=== PATIENT | female | born 1960 | race Caucasian/White ===

== ENCOUNTER → 2016-12-20 | Outpatient (CLI) | payer OTHER | LOC: US 12-19 14:15 | DX: N28.9 Disorder of kidney and ureter, unspecified (principal) ==

== ENCOUNTER → 2017-02-13 | Outpatient (CLI) | payer OTHER ==
[2017-02-13 13:07] LABS: HEMOGLOBIN 11.2 gm/dl (12.3-15.3); RED BLOOD COUNT 3.47 M/UL (4.00-5.10); WHITE BLOOD COUNT 4.3 K/UL (4.5-11.0)
== END ==
LOC: LAB 12:45
PROVIDERS: Internal Medicine
DX: Z51.81 Encounter for therapeutic drug level monitoring (principal); G56.03 Carpal tunnel syndrome, bilateral upper limbs; M21.611 Bunion of right foot; M17.0 Bilateral primary osteoarthritis of knee; M05.79 Rheumatoid arthritis with rheumatoid factor of multiple sites without organ or systems involvement; Z79.1 Long term (current) use of non-steroidal anti-inflammatories (NSAID); M51.36 Other intervertebral disc degeneration, lumbar region; Z79.899 Other long term (current) drug therapy; Z15.89 Genetic susceptibility to other disease; Z71.9 Counseling, unspecified
CPT/HCPCS: 36415; 80076; 82565; 85025; 86140

== ENCOUNTER → 2017-02-28 | Outpatient (CLI) | payer OTHER | LOC: US 13:00 | DX: R59.0 Localized enlarged lymph nodes (principal); E04.2 Nontoxic multinodular goiter | CPT/HCPCS: 76536 ==

== ENCOUNTER → 2021-07-10 | Outpatient (CLI) | payer OTHER | LOC: MAMO 07:40 | DX: Z12.31 Encounter for screening mammogram for malignant neoplasm of breast (principal); O01.0 Classical hydatidiform mole | CPT/HCPCS: 77063; 77067 ==